=== PATIENT | female | born 1995 ===

== ENCOUNTER 2018-10-18 01:08 | Emergency (ER) | END 2018-10-18 02:38 | disposition left against medical advice (07) | LOC: ER 01:08 | DX: Z53.21 Procedure and treatment not carried out due to patient leaving prior to being seen by health care provider (principal) ==

== ENCOUNTER 2018-10-19 16:59 | Emergency (ER) | END 2018-10-19 17:49 | disposition left against medical advice (07) | LOC: ER 16:59 | DX: Z53.21 Procedure and treatment not carried out due to patient leaving prior to being seen by health care provider (principal) ==